=== PATIENT | male | born 1985 | race Caucasian/White ===

== ENCOUNTER → 2019-04-12 | Outpatient (CLI) | payer OTHER | LOC: COL.RAD 10:52 | DX: R94.5 Abnormal results of liver function studies (principal) ==

== ENCOUNTER 2020-04-09 12:31 | Emergency (ER) | payer OTHER ==
[~2020-04-09] VITALS: Ht 180.3 cm; Wt 94.1 kg
[2020-04-09 12:39] VITALS: BP 137/81; TEMP 98.4
[2020-04-09 13:43] LABS: BASO % 0.3 % (0.0-2.0); EOS % 0.1 % (0-4.0); GRAN # 7.5 (1.4-6.5); GRAN % 75.9 % (42.2-75.2); HEMATOCRIT 47.8 % (42.0-52.0); HEMOGLOBIN 16.1 g/dl (13.5-18.0); LYMPH # 1.7 (1.2-3.4); LYMPH % 17.5 % (20.0-51.0); MEAN CELL VOLUME 86 fl (80.0-100.0); MEAN CORPUSCULAR HEMOGLOBIN 29 pg (27.0-31.0); MEAN CORPUSCULAR HGB CONC 34 g/dl (33.0-37.0); MEAN PLATELET VOLUME 10.6 fl (7.4-10.4); MONO # 0.6 (0.1-0.6); PLATELET COUNT 207 K/mm3 (130-400); RED BLOOD COUNT 5.55 M/mm3 (4.20-5.60); REDCELL DISTRIBUTION WIDTH-CV 11.9 % (11.5-14.5)
[2020-04-09 13:54] LABS: ALBUMIN 5.2 gm/dL (3.5-5.0); CALCIUM 10.3 mg/dL (8.4-10.2); CREATININE, serum 0.99 (0.66-1.25); TOTAL PROTEIN 8.3 gm/dL (6.4-8.2)
[2020-04-09 14:41] VITALS: PULSE 83
== END 2020-04-09 14:42 | disposition home or self-care (01) ==
LOC: COL.ER 12:31
PROVIDERS: Physician Assistant
DX: B34.9 Viral infection, unspecified (principal); Z20.822 Contact with and (suspected) exposure to COVID-19; Z86.16 Personal history of COVID-19

== ENCOUNTER 2022-12-19 08:00 | Day surgery (SDC) | payer OTHER ==
[~2022-12-19] VITALS: Ht 180.3 cm; Wt 88.5 kg
[2022-12-19 09:28] VITALS: BP 134/91; PULSE 84; TEMP 98.1
[2022-12-19 09:55] VITALS: BP 98/72; PULSE 71; TEMP 98
[2022-12-19 10:10] VITALS: BP 106/81; PULSE 71
--- NOTE | 2022-12-19 10:33 | NUR ---
09-PATIENT ARRIVED VIA CART TO [facility], AMBULATED WITH ASSISTANCE TO RECLINER. WARM BLANKET PROVIDED. VITAL SIGNS TAKEN, VSS. PT DENIES PAIN OR NAUSEA. REPORT OBTAINED FROM MATTIE JACKSON. PT OFFERED PO INTAKE 1010-PT TOLERATING PO INTAKE WELL, DENIES COMPLAINTS, VSS 1020-DISCHARGE PAPERWORK REVIEWED WITH PT, QUESTIONS INVITED. IV CATHETER DISCONTINUED, TIP INTACT. PRESSURE HELD AND BANDAGE APPLIED. PT DRESSED INDEPENDENTLY. 1029-PT DISCHARGED HOME TO [facility] VIA WHEELCHAIR, ACCOMPANIED BY SPOUSE. ALL BELONGINGS AND DC PAPERWORK SENT WITH PT.
== END 2022-12-19 10:29 | disposition home or self-care (01) ==
LOC: SDCO 08:00
DX: R19.4 Change in bowel habit (principal); R19.5 Other fecal abnormalities; K64.0 First degree hemorrhoids
CPT/HCPCS: J2704; J7120